=== PATIENT | male | born 1940 | race Caucasian/White ===

== ENCOUNTER 2016-07-17 06:18 | Observation (INO) | payer MEDICARE ==
[2016-07-13 13:33] LABS: BASOPHILS 0.3 %; BASOPHILS ABSOLUTE 0.02 10/3/uL (0.0-0.16); EOSINOPHILS 5.8 %; HEMATOCRIT 42.1 % (40.0-51.0); HEMOGLOBIN 13.8 g/dL (13.6-17.8); IMMATURE GRANULOCYTES 0.1 %; IMMATURE GRANULOCYTES ABSOLUTE 0.01 10/3/uL (0.0-0.11); LYMPHOCYTES 16.2 %; LYMPHOCYTES ABSOLUTE 1.12 10/3/uL (0.67-4.30); MEAN CORPUS HGB CONC 32.8 g/dL (32.0-36.0); MEAN CORPUSCULAR HEMOGLOB 28.8 pg (26.0-34.0); MEAN PLATELET VOLUME 10.9 fL (9.2-13.0); MONOCYTES 7.8 %; MONOCYTES ABSOLUTE 0.54 10/3/uL (0.21-1.20); NEUTROPHILS 69.8 %; NEUTROPHILS ABSOLUTE 4.81 10/3/uL (2.02-8.40); PLATELET COUNT 178 10/3/uL (150-400); RBC DISTRIBUTION WIDTH 14.3 % (12.0-16.0); WHITE BLOOD CELLS 6.9 10/3/uL (4.5-10.5)
[2016-07-13 13:34] LABS: MANUAL DIFF NO %; MEAN CORPUSCULAR VOLUME 87.7 fL (80-100)
[2016-07-13 13:45] LABS: INTERNATIONAL NORMAL RATI 1.7 UNITS (-); PROTIME (NOT ORD) 19.7 SEC (12.0-14.5)
[2016-07-13 14:59] LABS: CALCIUM, SERUM 9.2 MG/DL (8.5-10.4); CHLORIDE, SERUM 100 MMOL/L (96-112); CO2 (CARBON DIOXIDE) 27 MMOL/L (24-34); GFR AFRICAN AMERICAN 39 ML/MIN (>=60); GFR NON AFRICAN AMERICAN 34 ML/MIN (>=60); GLUCOSE, SERUM 94 MG/DL (60-99); POTASSIUM, SERUM 4.3 MMOL/L (3.5-5.3); SODIUM, SERUM 138 MMOL/L (135-148)
[2016-07-13 15:02] LABS: BUN (BLOOD UREA NITROGEN) 23 MG/DL (6-23)
--- NOTE | ~2016-07-17 | HP ---
History And Physical [address] [address] NAME: EVAN PIMENTEL JR : 42 STATUS : ADM [facility] PAT#: [id number] AGE: 76 ADM/REG DATE : 07/17/16 MR#: [id number] REPORT SERV DATE: 07/17/16 DICTATED BY: Lisa TREJO DATE: 07/17/16 REPORT STATUS : Draft TRANSCRIBED BY: MODAfia DATE: 07/17/16 DATE OF ADMISSION: 07/17/2016 CHIEF COMPLAINT: Urinary retention due to BPH. HISTORY OF PRESENT ILLNESS: Mr. Pimentel is a 76-year-old white male with a history of chronic urinary retention. He has failed multiple voiding trials and medical therapy. He is here for TURP. The risks of bleeding, infection, anesthesia, injury to adjacent organs, inability to void even if successful procedure, and the need for repeat resection, etc. were all discussed. There were no unanswered questions. PAST MEDICAL HISTORY: 1. DVT with pulmonary embolism. 2. BPH with chronic urinary retention. 3. CAD. 4. Chronic kidney disease. PAST SURGICAL HISTORY: 1. Knee surgery. 2. Carotid endarterectomy. FAMILY HISTORY: Unremarkable for urologic disease. SOCIAL HISTORY: The patient denies tobacco use. HOME MEDICATIONS: Norvasc 10 mg daily. Cipro 500 q.12 hours. Coumadin 6 mg daily, he has been off that for 5 days. ALLERGIES: NO KNOWN DRUG ALLERGIES. REVIEW OF SYSTEMS: Full review of systems is negative except as noted above. PHYSICAL EXAMINATION: GENERAL: A 76-year-old white male, alert and oriented x3. VITAL SIGNS: Afebrile with normal vital signs. RESPIRATORY: No respiratory distress. HEART: Regular rate and rhythm. ABDOMEN: Flat, nontender, and nondistended. Indwelling Garcia catheter. No peripheral edema. PERTINENT LABORATORY: INR 1.2. PSA 5.0. Creatinine 1.90. IMPRESSION: 1. BPH with bladder outlet obstruction. 2. Chronic urinary retention. History And Physical [address] [address] NAME: EVAN PIMENTEL JR : 42 STATUS : ADM [facility] PAT#: [id number] AGE: 76 ADM/REG DATE : 07/17/16 MR#: [id number] REPORT SERV DATE: 07/17/16 DICTATED BY: Lisa TREJO DATE: 07/17/16 REPORT STATUS : Draft TRANSCRIBED BY: MARINA DATE: 07/17/16 PLAN: CystALEXUS [email or web address]. WILLIAN/MARINA Lisa Trejo M.D. / [id number] CC: Bob Russell MD
--- NOTE | ~2016-07-17 | OP ---
Record Of Operation [facility] [address] [place]. [address] NAME: EVAN PIMENTEL JR : 42 STATUS : ADM [facility] PAT#: [id number] AGE: 76 ADM/REG DATE : 07/17/16 MR#: [id number] REPORT SERV DATE: 07/17/16 DICTATED BY: Lisa TREJO DATE: 07/17/16 REPORT STATUS : Draft TRANSCRIBED BY: MODL DATE: 07/17/16 DATE OF PROCEDURE: 07/17/2016 PREOPERATIVE DIAGNOSIS: Chronic urinary retention due to benign prostatic hyperplasia. POSTOPERATIVE DIAGNOSES: 1. Small left-sided papillary-appearing bladder tumor. 2. Benign prostatic hyperplasia with bladder outlet obstruction. PROCEDURE: Cystoscopy, transurethral resection of the prostate, transurethral resection of bladder tumor (less than 2 cm lesion). SURGEON: Lisa Trejo M.D. ANESTHESIA: General endotracheal. COMPLICATIONS: None. DRAINS: 24-Gabonese 3-way Garcia catheter. BRIEF HISTORY: Mr. Pimentel is a 76-year-old white male with BPH, bladder outlet obstruction. He has been on finasteride and has failed multiple voiding trials and has been catheter dependent. He just recently has been able to come off his Coumadin for short period of time. We decided to proceed with TURP. The risks of bleeding, infection, retrograde ejaculation, impotence, failure, etc, were all discussed. There were no unanswered questions. His recent prostate volume was 53 mL. DESCRIPTION OF PROCEDURE: Under excellent general anesthesia, the patient was prepped and draped in standard lithotomy position. Cystoscopy was performed with the 30- and 70-degree lens, which revealed normal anterior urethra. The posterior urethra just showed trilobar BPH with a prominent median lobe. Inspection of the bladder revealed [id number] trabeculation throughout with normal orifices. 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 This was resected and sent as specimen #1. The base was thoroughly fulgurated, it was about 2 cm or so, or just less than that in size and just proximal to the orifice. I then inserted a 28-Gabonese Storz resectoscope, and after thoroughly fulgurating the side of resection, began a circumferential prostate resection, first resecting the median lobe down to the bladder neck, the left and right lobes and anterior tissue. I suspected 25 or so grams of tissue was resected. It was thoroughly fulgurated. Bleeding was well controlled and I removed the chips with the Ellik evacuator. I inserted a 24-Gabonese 3-way Garcia catheter, 40 mL of sterile water in the balloon, and placed it on light traction. The patient was taken to the recovery room in stable condition and will be observed overnight for bleeding. Record Of Operation [facility] [address] [facility]. [address] NAME: EVAN PIMENTEL JR : 42 STATUS : ADM [facility] PAT#: [id number] AGE: 76 ADM/REG DATE : 07/17/16 MR#: [id number] REPORT SERV DATE: 07/17/16 DICTATED BY: Lisa TREJO DATE: 07/17/16 REPORT STATUS : Draft TRANSCRIBED BY: MARINA DATE: 07/17/16 WILLIAN/MARINA Lisa Trejo M.D. / [id number] CC: Bob Russell MD
[~2016-07-17 06:18] MED LIST: ARICEPT10 PO; CIP5 PO; COUMADIN6 MG PO; FLOMAX4 PO; KLONO1 PO; NAMENDA10 MG PO; NORV10 PO
[2016-07-17 06:55] LABS: INTERNATIONAL NORMAL RATI 1.2 UNITS (-)
[2016-07-17 06:56] LABS: PROTIME (NOT ORD) 15.2 SEC (12.0-14.5)
[2016-07-17 10:38] LABS: HEMOGLOBIN 12.1 g/dL (13.6-17.8)
[2016-07-17 10:39] LABS: HEMATOCRIT 37.2 % (40.0-51.0)
[2016-07-17 10:47] LABS: CALCIUM, SERUM 8.7 MG/DL (8.5-10.4); CHLORIDE, SERUM 107 MMOL/L (96-112); CO2 (CARBON DIOXIDE) 25 MMOL/L (24-34); CREATININE 1.81 MG/DL (0.70-1.30); GFR AFRICAN AMERICAN 41 ML/MIN (>=60); GFR NON AFRICAN AMERICAN 36 ML/MIN (>=60); POTASSIUM, SERUM 4.4 MMOL/L (3.5-5.3); SODIUM, SERUM 140 MMOL/L (135-148)
[2016-07-17 10:48] LABS: BUN (BLOOD UREA NITROGEN) 19 MG/DL (6-23); GLUCOSE, SERUM 129 MG/DL (60-99)
[2016-07-18 06:28] LABS: HEMATOCRIT 36.9 % (40.0-51.0); HEMOGLOBIN 12.1 g/dL (13.6-17.8)
[2016-07-18 06:37] LABS: BUN (BLOOD UREA NITROGEN) 18 MG/DL (6-23); CALCIUM, SERUM 8.6 MG/DL (8.5-10.4); CHLORIDE, SERUM 108 MMOL/L (96-112); CO2 (CARBON DIOXIDE) 26 MMOL/L (24-34); CREATININE 1.56 MG/DL (0.70-1.30); GFR AFRICAN AMERICAN 50 ML/MIN (>=60); GFR NON AFRICAN AMERICAN 43 ML/MIN (>=60); POTASSIUM, SERUM 4.2 MMOL/L (3.5-5.3); SODIUM, SERUM 142 MMOL/L (135-148)
[2016-07-18 06:39] LABS: GLUCOSE, SERUM 97 MG/DL (60-99)
== END 2016-07-18 10:54 | disposition home or self-care (01) ==
LOC: SDC 06:18 → SDC/OF 10:28 → 4SO 14:10
PROC: 0T5B8ZZ Destruction of Bladder, Via Natural or Artificial Opening Endoscopic (ICD-10-PCS; principal; 2016-07-17 07:45)
PROC: 0VT08ZZ Resection of Prostate, Via Natural or Artificial Opening Endoscopic (ICD-10-PCS; 2016-07-17 07:45)
DX: C67.2 Malignant neoplasm of lateral wall of bladder (principal); N40.1 Benign prostatic hyperplasia with lower urinary tract symptoms; N13.8 Other obstructive and reflux uropathy; N32.89 Other specified disorders of bladder; N18.9 Chronic kidney disease, unspecified; I12.9 Hypertensive chronic kidney disease with stage 1 through stage 4 chronic kidney disease, or unspecified chronic kidney disease; I25.10 Atherosclerotic heart disease of native coronary artery without angina pectoris; Z86.718 Personal history of other venous thrombosis and embolism; Z86.711 Personal history of pulmonary embolism; Z79.2 Long term (current) use of antibiotics; Z79.01 Long term (current) use of anticoagulants; Z79.899 Other long term (current) drug therapy; Z87.891 Personal history of nicotine dependence; Z90.89 Acquired absence of other organs; Z98.890 Other specified postprocedural states
CPT/HCPCS: 36415; 80048; 80200; 84153; 85014; 85018; 85025; 85610; 86850; 86900; 86901; 88305; 88307; 93005; A9270-GY; G0378; J2270; J2405; J2710; J3010; J3260